=== PATIENT | female | born 1990 | race American Indian/Alaskan Native ===

== ENCOUNTER 2017-12-09 20:22 | Emergency (ER) | payer OTHER ==
[2017-12-09 20:35] VITALS: BMI 35.1
[2017-12-09] MEDS ORDERED: Sodium Chloride 0.9% 1,000 ML IV STA (20:52)
[2017-12-09 20:53] VITALS: RESP 18
--- NOTE | 2017-12-09 21:25 | ED PDOC ---
Arrival/HPI <Tien Montalvo - Last Filed: 12/09/17 22:53> - General Historian: Patient - History of Present Illness Time/Duration: > week Symptom Onset: Gradual Symptom Course: Worsening Quality: Aching, Cramping Severity Level: 6 <Di Cox - Last Filed: 12/10/17 01:15> - General Chief Complaint: GI Problem Time Seen by Provider: 12/09/17 20:29 - History of Present Illness Narrative History of Present Illness (Text): 12/09/17 21:22 27-year-old female who is approximately 7 weeks presents today with a one-week history of left-sided abdominal pain. Patient states she has been constipated for the past week. Patient states she has not had a bowel movement in the past 3 days. Patient states she was seen by her primary care physician and given stool softeners for which she has been taking. Patient denies chest pain or shortness of breath. Patient states she had an ultrasound performed that showed that she had an IUP. Patient denies any vaginal bleeding. Patient states the pain is crampy in the left lower side of the abdomen. Patient states she has a history of ovarian cyst. She denies vaginal discharge. No medications have been taken for pain at home. No vomiting. Patient denies dysuria or urinary frequency or urgency. She denies back pain. (Di Cox) Past Medical History - Provider Review Nursing Documentation Reviewed: Yes - Travel History Have you recently traveled outside [place] w/in the past 3 mons?: No - Infectious Disease Hx of Infectious Diseases: None - Tetanus Immunization Tetanus Immunization: Unknown - Psychiatric Hx Substance Use: Yes <Di Cox - Last Filed: 12/10/17 01:15> Family/Social History - Physician Review Nursing Documentation Reviewed: Yes Family/Social History: Unknown Family HX Smoking Status: Never Smoked Hx Alcohol Use: No Hx Substance Use: Yes Substance used: marijuana <Di Cox - Last Filed: 12/10/17 01:15> Allergies/Home Meds <Tien Montalvo - Last Filed: 12/09/17 22:53> <Di Cox - Last Filed: 12/10/17 01:15> Allergies/Adverse Reactions: Allergies No Known Allergies Allergy (Verified 12/09/17 20:34) Review of Systems - Review of Systems Constitutional: absent: Fatigue, Fevers Respiratory: absent: SOB, Cough Cardiovascular: absent: Chest Pain, Palpitations Gastrointestinal: Abdominal Pain, Constipation. absent: Diarrhea, Nausea, Vomiting, Appetite Changes, Hematochezia, Hematemesis, Anorexia, Food Intolerance Genitourinary Female: absent: Dysuria, Frequency, Hematuria, Vaginal Bleeding, Vaginal Discharge Musculoskeletal: absent: Arthralgias, Back Pain, Neck Pain Skin: absent: Rash, Pruritis Neurological: absent: Headache, Dizziness Psychiatric: absent: Anxiety, Depression <Di Cox - Last Filed: 12/10/17 01:15> Physical Exam Vital Signs Reviewed: Yes Temperature: Afebrile Blood Pressure: Normal Pulse: Regular Respiratory Rate: Normal Appearance: Positive for: Well-Appearing, Non-Toxic, Comfortable Pain Distress: None Mental Status: Positive for: Alert and Oriented X 3 - Systems Exam Head: Present: Atraumatic Mouth: Present: Moist Mucous Membranes Neck: Present: Normal Range of Motion Respiratory/Chest: Present: Clear to Auscultation, Good Air Exchange. No: Respiratory Distress, Accessory Muscle Use Cardiovascular: Present: Regular Rate and Rhythm, Normal S1, S2. No: Murmurs Abdomen: Present: Tenderness (+ suprapubic and left sided pelvic tenderness). No: Distention, Peritoneal Signs, Rebound, Guarding Genitourinary/Pelvic Exam: Present: Normal External Genitalia, Cervical os Closed (chaparoned by Lyn RIGGINS RN), Other (chaparoned). No: Vaginal Discharge, Vaginal Bleeding, Vaginal Lesions, Adenexal Tenderness, Adenexal Mass, Cervical Motion Tendernes, Odor Back: Present: Normal Inspection Upper Extremity: Present: Normal Inspection Lower Extremity: Present: Normal Inspection Neurological: Present: GCS=15, Speech Normal Skin: Present: Warm, Dry, Normal Color. No: Rashes Psychiatric: Present: Alert, Oriented x 3 <Di Cox - Last Filed: 12/10/17 01:15> Vital Signs Temp Pulse Resp BP Pulse Ox 12/09/17 23:08 68 18 117/66 100 12/09/17 20:40 97.3 F L 62 18 112/70 100 Medical Decision Making <Tien Montalvo - Last Filed: 12/09/17 22:53> Reassessment Condition: Re-examined, Improved <AzoiaDi - Last Filed: 12/10/17 01:15> ED Course and Treatment: 12/09/17 21:25 Patient is nontoxic well appearing in no distress. vital signs are stable. CBC: wnl CMP: wnl Beta hC TYPE AND SCREEN: A+ Urinalysis: + leukocytosis Ultrasound:FINDINGS: Gestation: A single intrauterine gestational sac is identified, with yolk sac. No pole is identified at this time. The mean gestational sac diameter is 1.8 cm. This is consistent with a age of 6 weeks 2 days. Placenta/amniotic fluid: Cannot be adequately evaluated due to the early gestational age. Uterus/cervix: The uterus measures 9.2 x 4.6 x 5.2 cm. No myometrial mass. Ovaries: The right ovary measures 4.4 x 2.7 x 2.8 cm. There is physiologic blood flow within the right ovary, with small hypoechoic follicles. The left ovary measures 3.8 x 3.1 x 4.3 cm. Within the left ovary, there is a mass of heterogeneous echogenicity measuring 2.7 x 2.3 x 2.6 cm. This is peripherally hyperechoic and centrally hypoechoic. This may resent a more solid appearance to a corpus luteum cyst, although additional pathology cannot be excluded. There is increased vascular flow at the periphery of the left ovarian mass. Free fluid: No free fluid. Bladder: Wall is normal thickness for degree of distention. Other: Transabdominal imaging is limited. IMPRESSION: 1. A single intrauterine gestational sac is identified, with yolk sac. No pole is identified at this time. 2. The estimated gestational age is 6 weeks 2 days. 3. The left ovary measures 3.8 x 3.1 x 4.3 cm. Within the left ovary, there is a mass of heterogeneous echogenicity measuring 2.7 x 2.3 x 2.6 cm. This may resent a more solid appearance to a corpus luteum cyst, although additional pathology cannot be excluded. 4. Follow-up ultrasonography is recommended. pt reassessment; after tylenol pain has resolved completely. Discussed all the results the patient. advised f/u with the hotel baggage handler within the next 2 days. advised immediate return if symptoms worsen,persist or if new symptoms develop. i stressed important of abx of uti, for vitamins and for f/u with [employer] for /threatened and ovarian mass. Patient verbalizes understanding of discharge instructions and need for immediate followup. all aspects of this case were discussed the attending of record. Impression: threatened , UTI, ovarian mass, abdominal pain Tylenol every 4 hours as needed for pain Increase fluids Increase fiber Macrobid; 1 tablet twice daily x 10 days. Followup with the merchandise flow team member within the next 2 days Return immediately if symptoms worsen persist or if new symptoms develop: High fevers, heavy bleeding, severe abdominal pain, vomiting, diarrhea, dizziness or weakness or any other concerning symptoms develop. Take vitamins daily. (Di Cox) - Lab Interpretations Lab Results: 12/09/17 21:21 12/09/17 21:21 Lab Results 12/09/17 22:27: Blood Type Confirm A POSITIVE 12/09/17 22:03: Blood Type A POSITIVE, Antibody Screen Negative, BBK History Checked No verified bt 12/09/17 21:21: WBC 8.8, RBC 5.33, Hgb 12.2, Hct 36.8, MCV 69.0 L, MCH 22.9 L, MCHC 33.2, RDW 15.0 H, Plt Count 264, MPV 9.1, Gran % 45.8 L, Lymph % (Auto) 49.4 H, [place] % (Auto) 4.2, Eos % (Auto) 0.6 L, Baso % (Auto) 0.0, Gran # 4.04, Lymph # (Auto) 4.4 H, [place] # (Auto) 0.4, Eos # (Auto) 0.1, Baso # (Auto) 0.00 12/09/17 21:21: Beta HCG, Quant 35414.00 H 12/09/17 21:21: Sodium 139, Potassium 3.9, Chloride 104, Carbon Dioxide 22, Anion Gap 16, BUN 10, Creatinine 0.6 L, Est GFR ( Amer) > 60, Est GFR ( Non-Af Amer) > 60, Random Glucose 89, Calcium 9.3, Total Bilirubin 0.4, AST 24, ALT 29, Alkaline Phosphatase 48, Total Protein 7.4, Albumin 4.1, Globulin 3.3, Albumin/Globulin Ratio 1.3, Lipase 43 12/09/17 21:15: Urine Color Yellow, Urine Appearance Slight-cloudy, Urine pH 8.5 , Ur Specific [place] 1.015, Urine Protein Negative, Urine Glucose (UA) Negative , Urine Ketones Negative, Urine Blood Negative, Urine Nitrate Negative, Urine Bilirubin Negative, Urine Urobilinogen 1.0 H, Ur Leukocyte Esterase Trace H, Urine RBC Negative, Urine WBC 0 - 2, Ur Epithelial Cells 0 - 2, Amorphous Sediment Few - RAD Interpretation Radiology Orders: 12/09/17 21:05 OB TRANSVAGINAL [US] Stat - Medication Orders Current Medication Orders: Discontinued Medications Acetaminophen (Tylenol 325mg Tab) 975 mg PO STAT STA Stop: 12/09/17 21:06 Last Admin: 12/09/17 21:38 Dose: 975 mg MAR Pain/Vitals Document 12/09/17 21:38 OCS (Rec: 12/09/17 21:38 OCS [id number]) Pain Reassessment Is This A Pain ReAssessment? No Sleep Is patient sleeping during reassessment? No Presence of Pain Presence of Pain Yes Sodium Chloride (Sodium Chloride 0.9%) 1,000 mls @ 999 mls/hr IV .Q1H1M STA Stop: 12/09/17 21:52 Last Admin: 12/09/17 21:38 Dose: 999 mls/hr eMAR Start Stop Document 12/09/17 21:38 OCS (Rec: 12/09/17 21:38 OCS [id number]) Intravenous Solution Start Date 12/09/17 Start Time 21:38 End Date 12/09/17 End time 22:39 Total Infusion Time 61 Nitrofurantoin Macrocrystals (Macrobid) 100 mg PO STAT STA PRN Reason: Protocol Stop: 12/10/17 00:58 - PA / SHIPPING AND RECEIVING SPECIALIST / Resident Statement /DO has reviewed & agrees with the documentation as recorded. <Tien Montalvo - Last Filed: 12/09/17 22:53> Disposition/Present on Arrival <Tien Montalvo - Last Filed: 12/09/17 22:53> - Present on Arrival Any Indicators Present on Arrival: No History of DVT/PE: No History of Uncontrolled Diabetes: No Urinary Catheter: No History of Decub. Ulcer: No History Surgical Site Infection Following: None - Disposition Have Diagnosis and Disposition been Completed?: Yes Disposition Time: 00:57 Patient Plan: Discharge <Di Cox - Last Filed: 12/10/17 01:15> - Disposition Diagnosis: Threatened , Urinary tract infection, Abdominal pain, Ovarian mass Disposition: HOME/ ROUTINE Patient Problems: Current Active Problems Problem Status Onset Abdominal pain Acute Ovarian mass Acute Threatened Acute Urinary tract infection Acute Condition: GOOD Discharge Instructions (ExitCare): Urinary Tract Infections in Adults, Threatened Miscarriage (DC) Additional Instructions: Tylenol every 4 hours as needed for pain Increase fluids Increase fiber Macrobid; 1 tablet twice daily x 10 days. Followup with the merchandise flow team member within the next 2 days Return immediately if symptoms worsen persist or if new symptoms develop: High fevers, heavy bleeding, severe abdominal pain, vomiting, diarrhea, dizziness or weakness or any other concerning symptoms develop. Take vitamins daily. Prescriptions: Acetaminophen [Acetaminophen Extra Strength] 500 mg PO Q4H PRN #30 tablet PRN Reason: pain/fever reduction Nitrofurantoin Macrocrystals [Macrobid] 100 mg PO BID #20 cap Multivit/Folic Acid/I [ Plus] 1 tab PO DAILY #30 tab Referrals: Mary Rose DO [Primary Care Provider] - Follow up with primary Eugenie Silverio MD [Staff Provider] - [facility] - Follow up with primary Forms: [employer] ([place]se), WORK NOTE
[2017-12-09 21:33] LABS: EOS # 0.1 (0.0-0.7); EOS % 0.6 % (1.5-5.0); GRAN # 4.04 (1.4-6.5); GRAN % 45.8 % (50.0-68.0); HEMOGLOBIN 12.2 g/dL (12.0-16.0); LYMPH # 4.4 (1.2-3.4); LYMPH % 49.4 % (22.0-35.0); MEAN CORPUSCULAR HEMOGLOBIN 22.9 pg (25.0-35.0); MEAN CORPUSCULAR HGB CONC 33.2 g/dl (31.0-37.0); MEAN PLATELET VOLUME 9.1 fl (7.0-11.0); MONO # 0.4 (0.1-0.6); MONO % 4.2 % (1.0-6.0); RBC 5.33 10^6/uL (3.5-6.1); WHITE BLOOD COUNT 8.8 10^3/ul (4.5-11.0)
[2017-12-09 21:34] LABS: PH,URINE 8.5 (4.7-8.0); URINE BILIRUBIN NEGATIVE (NEGATIVE); URINE BLOOD NEGATIVE (NEGATIVE); URINE GLUCOSE (UA) NEGATIVE (NEGATIVE); URINE LEUKOCYTE ESTERASE TRACE Leu/uL (NEGATIVE); URINE PROTEIN NEGATIVE mg/dL (<30 mg/dL)
[2017-12-09 21:35] LABS: URINE APPEARANCE SLIGHT-CLOUDY (CLEAR); URINE COLOR YELLOW (YELLOW)
[2017-12-09 21:43] LABS: URINE AMORPHOUS SEDIMENT FEW; URINE EPITHELIAL CELLS 0 - 2 /hpf (0-5); URINE RBC NEGATIVE /hpf (0-2); URINE WBC 0 - 2 /hpf (0-6)
[2017-12-09 21:45] LABS: ALB/GLOB RATIO 1.3 (1.1-1.8)
[2017-12-09 21:48] LABS: ALBUMIN 4.1 g/dL (3.0-4.8); ALT/SGPT 29 U/L (7-56); AST/SGOT 24 U/L (14-36); BLOOD UREA NITROGEN 10 mg/dL (7-21); CALCIUM 9.3 mg/dL (8.4-10.5); GFR AFRICAN-AMERICAN > 60; GFR NON-AFRICAN AMERICAN > 60; LIPASE 43 U/L (23-300)
--- NOTE | 2017-12-10 | US ---
EXAM: US First Trimester, Transabdominal US , Transvaginal EXAM DATE/TIME: 12/09/2017 9:05 PM CLINICAL HISTORY: The patient age is 27 years old and is female; Pain; complicated by abdominal or pelvic pain; Left lower quadrant; First trimester; Gestational age or lmp: 6wks; Facility exam id and description: Us obtransvag ob transvaginal TECHNIQUE: Real-time transabdominal and transvaginal obstetrical ultrasound of the maternal pelvis and a first trimester with image documentation. Transvaginal imaging was used for better evaluation of the fetus and adnexa. COMPARISON: No relevant prior studies available. FINDINGS: Gestation: A single intrauterine gestational sac is identified, with yolk sac. No pole is identified at this time. The mean gestational sac diameter is 1.8 cm. This is consistent with a age of 6 weeks 2 days. Placenta/amniotic fluid: Cannot be adequately evaluated due to the early gestational age. Uterus/cervix: The uterus measures 9.2 x 4.6 x 5.2 cm. No myometrial mass. Ovaries: The right ovary measures 4.4 x 2.7 x 2.8 cm. There is physiologic blood flow within the right ovary, with small hypoechoic follicles. The left ovary measures 3.8 x 3.1 x 4.3 cm. Within the left ovary, there is a mass of heterogeneous echogenicity measuring 2.7 x 2.3 x 2.6 cm. This is peripherally hyperechoic and centrally hypoechoic. This may resent a more solid appearance to a corpus luteum cyst, although additional pathology cannot be excluded. There is increased vascular flow at the periphery of the left ovarian mass. Free fluid: No free fluid. Bladder: Wall is normal thickness for degree of distention. Other: Transabdominal imaging is limited. IMPRESSION: 1. A single intrauterine gestational sac is identified, with yolk sac. No pole is identified at this time. 2. The estimated gestational age is 6 weeks 2 days. 3. The left ovary measures 3.8 x 3.1 x 4.3 cm. Within the left ovary, there is a mass of heterogeneous echogenicity measuring 2.7 x 2.3 x 2.6 cm. This may resent a more solid appearance to a corpus luteum cyst, although additional pathology cannot be excluded. 4. Follow-up ultrasonography is recommended.
[2017-12-10 01:53] VITALS: BP 115/65; PULSE 65; TEMP 97.8; O2SAT 99
== END 2017-12-10 01:15 | disposition home or self-care (01) ==
LOC: ED 20:22
DX: O20.0 Threatened abortion (principal); O34.81 Maternal care for other abnormalities of pelvic organs, first trimester; O23.41 Unspecified infection of urinary tract in pregnancy, first trimester; R10.9 Unspecified abdominal pain; Z3A.01 Less than 8 weeks gestation of pregnancy
CPT/HCPCS: 76817; 80053; 81001; 83690; 84702; 85025; 86850; 86900; 87086; 96360; 99284; J7030